=== PATIENT | female | born 1990 | race Caucasian/White ===

== ENCOUNTER 2024-09-25 08:18 | Emergency (ER) | payer OTHER ==
[2024-09-25 08:23] VITALS: TEMP 98
--- NOTE | 2024-09-25 08:48 | ED ---
General Adult HPI - General Chief complaint: Chest Pain Stated complaint: R leg swelling Time Seen by Provider: 09/25/24 08:32 Source: patient, RN notes reviewed, old records reviewed Mode of arrival: ambulatory Limitations: no limitations - History of Present Illness Initial comments: 34-year-old female presenting for evaluation of right leg pain and swelling as well as dyspnea. Patient symptoms began approximately 4 5 days prior. She had noticed some swelling to the right leg below the knee. She elevated the extremity and had some improvement. No prior history of DVT or PE but is concern for DVT. Patient is on testosterone. Associated palpitations and mild exertional dyspnea as well. No fever. No cough. - Related Data Home Medications Medication Instructions Recorded Confirmed Ibuprofen [Motrin] 600 mg PO Q8HR PRN 02/08/14 02/08/14 Previous Rx's Medication Instructions Recorded Phenytoin Sodium Extended 100 mg PO BID #14 capsule 02/08/14 [Dilantin] Allergies Allergy/AdvReac Type Severity Reaction Status Date / Time No Known Allergies Allergy Verified 09/25/24 08:23 Review of Systems ROS Statement: Those systems with pertinent positive or pertinent negative responses have been documented in the HPI. ROS Other: All systems not noted in ROS Statement are negative. Past Medical History Past Medical History: Asthma, Coronary Artery Disease (CAD) Additional Past Medical History / Comment(s): motion sickness History of Any Multi-Drug Resistant Organisms: None Reported Past Surgical History: Joint Replacement, Orthopedic Surgery Past Psychological History: No Psychological Hx Reported Smoking Status: Never smoker Past Alcohol Use History: Occasional Past Drug Use History: None Reported General Exam Limitations: no limitations General appearance: alert, in no apparent distress Head exam: Present: atraumatic, normocephalic Eye exam: Present: normal appearance, PERRL ENT exam: Present: normal exam Neck exam: Present: normal inspection. Absent: tenderness, meningismus Respiratory exam: Present: normal lung sounds bilaterally. Absent: respiratory distress, wheezes Cardiovascular Exam: Present: normal rhythm, tachycardia GI/Abdominal exam: Present: soft. Absent: distended, tenderness Extremities exam: Present: normal inspection, normal capillary refill. Absent: calf tenderness Neurological exam: Present: alert, oriented X3 Psychiatric exam: Present: normal affect, normal mood Skin exam: Present: warm, dry, intact. Absent: cyanosis, diaphoretic Course Vital Signs 09/25/24 09/25/24 08:20 09:00 Temperature 98 F Pulse Rate 149 H 58 L Respiratory 20 16 Rate Blood Pressure 115/68 116/84 O2 Sat by Pulse 98 98 Oximetry Medical Decision Making - Medical Decision Making Was pt. sent in by a medical professional or institution ([facility], [facility], urgent care, hospital, or usp...) When possible be specific @ -No Did you speak to anyone other than the patient for history (EMS, parent, family, police, friend...)? What history was obtained from this source @ -No Did you review nursing and triage notes (agree or disagree)? Why? @ -I reviewed and agree with nursing and triage notes Were old charts reviewed (outside hosp., previous admission, EMS record, old EKG, old radiological studies, urgent care reports/EKG's, usp records)? Report findings @ -No old charts were reviewed Differential Chest Pain: Stable Angina, Unstable Angina, pulmonary embolism, STEMI, NSTEMI Aortic Dissection, Pneumothorax, Musculoskeletal, Esophageal Spasm GERD, Cholecystitis, Pancreatitis, Zoster, this is not meant to be an all-inclusive list. EKG interpreted by me (3pts min.). @Sinus tachycardia rate of 118, FL interval 140, QRS duration 80, QTc [address] segment elevation [id number] pattern X-rays interpreted by me (1pt min.). @ -None done CT interpreted by me (1pt min.). @ -[CT negative for pulmonary embolism U/S interpreted by me (1pt. min.). @ -Ultrasound negative for DVT What testing was considered but not performed or refused? (CT, X-rays, U/S, labs)? Why? @ -None What meds were considered but not given or refused? Why? @ -None Did you discuss the management of the patient with other professionals (professionals i.e. [facility], [facility], lab, RT, psych nurse, social media developer, casino cage supervisor, teacher, tax revenue officer, correctional casework specialist)? Give summary @ -No Was smoking cessation discussed for >3mins.? @ -No Was critical care preformed (if so, how long)? @ -No Were there social determinants of health that impacted care today? How? (Homelessness, low income, unemployed, alcoholism, drug addiction, transportation, low edu. Level, literacy, decrease access to med. care, senior care, rehab)? @ -No Was there de-escalation of care discussed even if they declined (Discuss DNR or withdrawal of care, Hospice)? DNR status @ -No What co-morbidities impacted this encounter? (DM, HTN, Smoking, COPD, CAD, Cancer, CVA, ARF, Chemo, Hep., AIDS, mental health diagnosis, sleep apnea, morbid obesity)? @Testosterone therapy Was patient admitted / discharged? Hospital course, mention meds given and route, prescriptions, significant lab abnormalities, going to OR and other pertinent info. @ -[34-year-old female with tachycardia, dyspnea, right leg swelling. Workup for both DVT and PE is negative in the emergency department laboratory testing is unremarkable. Patient's heart rate normalizes with rest. Blood pressure stable. Patient stable for discharge at this time. Undiagnosed new problem with uncertain prognosis? @ -No Drug Therapy requiring intensive monitoring for toxicity (Heparin, Nitro, Insulin, Cardizem)? @ -No Were any procedures done? @ -No Diagnosis/symptom? @Right leg swelling, DVT ruled out Acute, or Chronic, or Acute on Chronic? @ -Acute Uncomplicated (without systemic symptoms) or Complicated (systemic symptoms)? @ -Default Side effects of treatment? @ -No Exacerbation, Progression, or Severe Exacerbation? @ -No Poses a threat to life or bodily function? How? (Chest pain, USA, PA, pneumonia, PE, COPD, DKA, ARF, appy, cholecystitis, CVA, Diverticulitis, Homicidal, Suicidal, threat to staff... and all critical care pts) @ -No - Lab Data Result diagrams: 09/25/24 08:44 09/25/24 08:44 Lab Results 09/25/24 09/25/24 09/25/24 Range/Units 08:44 08:44 08:44 WBC 6.1 (3.8-10.6) k/uL RBC 4.84 (3.80-5.40) m/uL Hgb 14.6 (11.4-16.0) gm/dL Hct 44.4 (34.0-46.0) % MCV 91.6 (80.0-100.0) fL MCH 30.2 (25.0-35.0) pg MCHC 32.9 (31.0-37.0) g/dL RDW 12.2 (11.5-15.5) % Plt Count 258 (150-450) k/uL MPV 8.0 Neutrophils % 62 % Lymphocytes % 28 % Monocytes % 5 % Eosinophils % 2 % Basophils % 0 % Neutrophils # 3.8 (1.3-7.7) k/uL Lymphocytes # 1.7 (1.0-4.8) k/uL Monocytes # 0.3 (0-1.0) k/uL Eosinophils # 0.1 (0-0.7) k/uL Basophils # 0.0 (0-0.2) k/uL PT 11.7 (10.0-12.5) sec INR 1.1 (<1.2) APTT 24.1 (22.0-30.0) sec Sodium 139 (137-145) mmol/L Potassium 3.7 (3.5-5.1) mmol/L Chloride 103 (98-107) mmol/L Carbon Dioxide 25 (22-30) mmol/L Anion Gap 11 mmol/L BUN 15 (7-17) mg/dL Creatinine 0.66 (0.52-1.04) mg/dL Est GFR (CKD-EPI)AfAm >90 (>60 ml/min/1.73 sqM) Est GFR (CKD-EPI)NonAf >90 (>60 ml/min/1.73 sqM) Glucose 93 (74-99) mg/dL Calcium 9.4 (8.4-10.2) mg/dL Magnesium 1.9 (1.6-2.3) mg/dL Total Bilirubin 0.7 (0.2-1.3) mg/dL AST 20 (14-36) U/L ALT 28 (4-34) U/L Alkaline Phosphatase 89 (38-126) U/L Troponin I (0.000-0.034) ng/mL NT-Pro-B Natriuret Pep <20 pg/mL Total Protein 7.5 (6.3-8.2) g/dL Albumin 4.5 (3.5-5.0) g/dL 09/25/24 Range/Units 08:44 WBC (3.8-10.6) k/uL RBC (3.80-5.40) m/uL Hgb (11.4-16.0) gm/dL Hct (34.0-46.0) % MCV (80.0-100.0) fL MCH (25.0-35.0) pg MCHC (31.0-37.0) g/dL RDW (11.5-15.5) % Plt Count (150-450) k/uL MPV Neutrophils % % Lymphocytes % % Monocytes % % Eosinophils % % Basophils % % Neutrophils # (1.3-7.7) k/uL Lymphocytes # (1.0-4.8) k/uL Monocytes # (0-1.0) k/uL Eosinophils # (0-0.7) k/uL Basophils # (0-0.2) k/uL PT (10.0-12.5) sec INR (<1.2) APTT (22.0-30.0) sec Sodium (137-145) mmol/L Potassium (3.5-5.1) mmol/L Chloride (98-107) mmol/L Carbon Dioxide (22-30) mmol/L Anion Gap mmol/L BUN (7-17) mg/dL Creatinine (0.52-1.04) mg/dL Est GFR (CKD-EPI)AfAm (>60 ml/min/1.73 sqM) Est GFR (CKD-EPI)NonAf (>60 ml/min/1.73 sqM) Glucose (74-99) mg/dL Calcium (8.4-10.2) mg/dL Magnesium (1.6-2.3) mg/dL Total Bilirubin (0.2-1.3) mg/dL AST (14-36) U/L ALT (4-34) U/L Alkaline Phosphatase (38-126) U/L Troponin I <0.012 (0.000-0.034) ng/mL NT-Pro-B Natriuret Pep pg/mL Total Protein (6.3-8.2) g/dL Albumin (3.5-5.0) g/dL Disposition Clinical Impression: Right leg swelling Disposition: HOME SELF-CARE Condition: Fair Is patient prescribed a controlled substance at d/c from ED?: No Referrals: Nonstaff,Physician [Primary Care Provider] - 1-2 days Time of Disposition: 10:09
[2024-09-25 09:00] VITALS: RESP 16
[2024-09-25 09:03] LABS: Basophils % (A) 0 %; Eosinophils # (A) 0.1 k/uL (0-0.7); Eosinophils % (A) 2 %; HCT 44.4 % (34.0-46.0); HGB 14.6 gm/dL (11.4-16.0); Lymphocytes # (A) 1.7 k/uL (1.0-4.8); Lymphocytes % (A) 28 %; MCH 30.2 pg (25.0-35.0); MCHC 32.9 g/dL (31.0-37.0); MCV 91.6 fL (80.0-100.0); Monocytes # (A) 0.3 k/uL (0-1.0); Monocytes % (A) 5 %; Neutrophils # (A) 3.8 k/uL (1.3-7.7); Neutrophils % (A) 62 %; Platelet Count 258 k/uL (150-450); RBC 4.84 m/uL (3.80-5.40); RDW 12.2 % (11.5-15.5); WBC 6.1 k/uL (3.8-10.6)
[2024-09-25 09:13] LABS: INR 1.1 (<1.2); Partial Thromboplastin Time 24.1 sec (22.0-30.0); Prothrombin Time 11.7 sec (10.0-12.5)
--- NOTE | 2024-09-25 09:32 | CT ---
EXAMINATION TYPE: CT angio chest DATE OF EXAM: 09/25/2024 9:21 AM COMPARISON: None CLINICAL INDICATION: Female, 34 years old with history of CP/MEDINA/TAchy; CHEST DISCOMFORT TECHNIQUE/CONTRAST: CTA scan of the thorax is performed with IV Contrast, patient injected with 65 mL of Isovue 300, MIP images are created and reviewed these are created on a separate workstation.. CT DLP: 227.4 mGycm, Automated exposure control for dose reduction was used. FINDINGS: Lungs/Pleura: No evidence of focal consolidation, pleural effusion or pneumothorax. Airway: Large airways are patent. Heart: Size within normal limits. No significant coronary artery calcifications. Vasculature: There is no evidence for a filling defect within the pulmonary vasculature to suggest ac pranav pulmonary embolism. The pulmonary artery is of normal size. Mediastinum: No gross evidence of adenopathy. Musculoskeletal: No acute osseous abnormalities Soft Tissues/lymph nodes: Unremarkable. Lower neck: No significant findings. Upper Abdomen: No significant findings. IMPRESSION: 1. No evidence of pulmonary embolism. [facility], , 09/25/2024 9:30 AM
[2024-09-25 09:38] LABS: ALT 28 U/L (4-34); AST 20 U/L (14-36); African American GFR (CKD) >90 (>60 ml/min/1.73 sqM); Albumin 4.5 g/dL (3.5-5.0); Alkaline Phosphatase 89 U/L (38-126); Anion Gap 11 mmol/L; Blood Urea Nitrogen 15 mg/dL (7-17); Calcium 9.4 mg/dL (8.4-10.2); Carbon Dioxide 25 mmol/L (22-30); Chloride 103 mmol/L (98-107); Glucose 93 mg/dL (74-99); Magnesium 1.9 mg/dL (1.6-2.3); Non-African American GFR(CKD) >90 (>60 ml/min/1.73 sqM); Potassium 3.7 mmol/L (3.5-5.1); Sodium 139 mmol/L (137-145); Total Bilirubin 0.7 mg/dL (0.2-1.3); Total Protein 7.5 g/dL (6.3-8.2)
--- NOTE | 2024-09-25 09:46 | US ---
EXAMINATION TYPE: US venous doppler duplex LE RT DATE OF EXAM: 09/25/2024 9:36 AM COMPARISON: NONE CLINICAL INDICATION: Female, 34 years old with history of pain/swelling; , Pain TECHNIQUE: The lower extremity deep venous system is examined utilizing real time linear array sonog gilberto with graded compression, color doppler sonography, and spectral doppler. SIDE PERFORMED: Right FINDINGS: VESSELS IMAGED: Common Femoral Vein Deep Femoral Vein Greater Saphenous Vein * Femoral Vein Popliteal Vein Small Saphenous Vein * Proximal Calf Veins (* superficial vessels) Right Leg: Negative for DVT, Color Doppler imaging shows patency of the vessels. Spectral waveforms are within normal limits. IMPRESSION: No ultrasound evidence for deep venous thrombosis. [facility], , 09/25/2024 9:43 AM
[2024-09-25 09:48] LABS: NT-Pro-B-Type Natriuretic Pept <20 pg/mL
[2024-09-25 10:54] VITALS: BP 116/68; PULSE 68
== END 2024-09-25 10:20 | disposition home or self-care (01) ==
LOC: EC 08:18
DX: R22.41 Localized swelling, mass and lump, right lower limb (principal); Z79.890 Hormone replacement therapy
CPT/HCPCS: 36415; 93005; 83880; 80053; 83735; 84484; 85025; 85610; 85730; 93971; 71275; 99285; Q9967